=== PATIENT | female | born 1960 | race Caucasian/White ===

== ENCOUNTER → 2016-09-27 | Outpatient (CLI) | payer BC ==
[~2016-09-27] MED LIST: REGADENOSON 0.4 MG/5 ML SYRINGE IV ONE
--- NOTE | 2016-09-27 11:06 | EST ---
DATE OF SERVICE: 09/27/2016 AGE: 56Y SEX: F HT: 62 WT: 178 lbs. Protocol Stephan: Other: Lexiscan Cardiolite Stage: Dur. of Exercise: *Heart Rate Blood Pressure *Rest: 69 Rest: 123/74 * *Max. Achieved: 88 Maximum BP: 124/74 85% PMHR: 100% PMHR: *METS: INDICATIONS: Chest pain. MEDICATIONS: Baseline rhythm is sinus mechanism, rate of 69, normal axis and intervals, minor nonspecific ST-T wave changes. Baseline blood pressure 123/74 mmHg. Patient received an injection of Lexiscan. Electrocardiograph monitoring revealed no evidence of diagnostic ischemic ST deviation. Cardiolite was injected per protocol. CONCLUSION: 1. Nondiagnostic electrocardiograph stress testing. 2. Nuclear images will be reported separately.
--- NOTE | 2016-09-27 12:43 | NM ---
EXAMINATION TYPE: NM stress Lexiscan cardiolite DATE OF EXAM: 09/27/2016 11:24 AM COMPARISON: Previous study dated 08/09/2011 HISTORY: Chest pain TECHNIQUE: After the intravenous administration of 10.28 mCi Tc 99m Sestamibi - Cardiolite resting S PECT images acquired 45 minutes post injection. The patient received 0.4mg Lexiscan, 26.4 mCi Tc 99m Sestamibi - Stress images obtained [address] injection FINDINGS: Review of stress and rest SPECT images demonstrates no distinct perfusion abnormality. Gated analysi s shows normal wall motion with an estimated left ventricular ejection fraction of 67 %. There is no convincing inducible ischemic change. IMPRESSION: I DO NOT SEE EVIDENCE OF INDUCIBLE ISCHEMIC CHANGE AT THIS TIME.
== END | disposition home or self-care (01) ==
LOC: RADNMMAIN 07:54
PROVIDERS: ATTEND Family Medicine
DX: R07.89 Other chest pain (principal)
CPT/HCPCS: 93017; 78452; A9500

== ENCOUNTER → 2018-09-18 | Outpatient (CLI) | payer BC ==
--- NOTE | 2018-09-22 08:28 | MM ---
Reason for exam: screening (asymptomatic). Last mammogram was performed 1 year and 6 months ago. History: Patient is postmenopausal. Family history of breast cancer in grandmother. Cyst aspiration of the left breast. Physical Findings: A clinical breast exam by your physician is recommended on an annual basis and results should be correlated with mammographic findings. MG Screening Mammo w CAD Bilateral CC and MLO view(s) were taken. Prior study comparison: March 21, 2017, bilateral MG screening mammo w CAD. July 05, 2015, bilateral MG screening mammo w CAD. The breast tissue is heterogeneously dense. This may lower the sensitivity of mammography. No significant changes when compared with prior studies. ASSESSMENT: Benign, BI-RAD 2 RECOMMENDATION: Routine screening mammogram of both breasts in 1 year.
== END | disposition home or self-care (01) ==
LOC: RADMAMWWP 10:42
PROVIDERS: ATTEND Family Medicine
DX: Z12.31 Encounter for screening mammogram for malignant neoplasm of breast (principal)
CPT/HCPCS: 77067

== ENCOUNTER 2018-10-28 08:29 | Day surgery (SDC) | payer BC ==
[2018-10-26 09:40] VITALS: BMI 31.1
[~2018-10-28 08:29] MED LIST changes: +LACTATED RINGERS 1,000 ML IV SCH; -REGADENOSON 0.4 MG/5 ML SYRINGE IV ONE
--- NOTE | 2018-10-28 08:41 | P.GSHP ---
History of Present Illness H&P Date: 10/28/18 CHIEF COMPLAINT: Colon screen HISTORY OF PRESENT ILLNESS: The patient is a 58-year-old female who presents for colon screen. Lower endoscopy was offered for further evaluation and management. PAST MEDICAL HISTORY: Please see list. PAST SURGICAL HISTORY: Please see list. MEDICATIONS: Please see list. ALLERGIES: Please see list. SOCIAL HISTORY: No illicit drug use FAMILY HISTORY: No reports of Crohn disease or ulcerative colitis. REVIEW OF ORGAN SYSTEMS: CONSTITUTIONAL: No reports of fevers or chills. PHYSICAL EXAM: VITAL SIGNS: Stable GENERAL: Well-developed pleasant in no acute distress. HEENT: No scleral icterus. Extraocular movements grossly intact. Moist buccal mucosa. NECK: Supple without lymphadenopathy. CHEST: Unlabored respirations. Equal bilateral excursions. CARDIOVASCULAR: Regular rate and rhythm. Distal 2+ pulses. ABDOMEN: Soft, nontender, nondistended. MUSCULOSKELETAL: No clubbing, cyanosis, or edema. ASSESSMENT: 1. Colon screen. PLAN: 1. Recommend proceeding with a lower endoscopy Past Medical History Past Medical History: Hyperlipidemia, Hypertension, Thyroid Disorder History of Any Multi-Drug Resistant Organisms: None Reported Past Surgical History: Cholecystectomy, Tubal Ligation Additional Past Surgical History / Comment(s): COLONOSCOPY Past Anesthesia/Blood Transfusion Reactions: No Reported Reaction Smoking Status: Never smoker - Past Family History Mother Family Medical History: Cancer Medications and Allergies Home Medications Medication Instructions Recorded Confirmed Type Citalopram Hydrobromide 40 mg PO DAILY 10/26/18 10/26/18 History [Citalopram HBr] Cyanocobalamin (Vitamin B-12) 2,500 mcg PO DAILY 10/26/18 10/26/18 History [Vitamin B-12] Ergocalciferol (Vitamin D2) 50,000 unit PO MO 10/26/18 10/26/18 History [Vitamin D2] Levothyroxine Sodium [Synthroid] 137 mcg PO DAILY 10/26/18 10/26/18 History Lisinopril [Zestril] 20 mg PO DAILY 10/26/18 10/26/18 History Metoprolol Succinate [Toprol Xl] 100 mg PO DAILY 10/26/18 10/26/18 History Simvastatin [Zocor] 10 mg PO HS 10/26/18 10/26/18 History busPIRone HCL [Buspar] 7.5 mg PO BID 10/26/18 10/26/18 History Allergies Allergy/AdvReac Type Severity Reaction Status Date / Time amoxicillin Allergy Rash/Hives Verified 10/26/18 09:35
[2018-10-28] MEDS ORDERED: LIDOCAINE 1% 20 ML VIAL (10MG/ML) FOR IV START INTRADERMA ONE (08:50)
[2018-10-28 08:53] VITALS: TEMP 97.5
[2018-10-28] MEDS ORDERED: PROPOFOL 10 MG/ML 20 ML VIAL IV ONE (09:34)
[2018-10-28 10:26] VITALS: RESP 18
--- NOTE | 2018-10-28 10:27 | P.PCN ---
Date of Procedure: 10/28/18 Description of Procedure: PREOPERATIVE DIAGNOSIS: Colonoscopy screening. POSTOPERATIVE DIAGNOSIS: Colonoscopy screening. Diverticulosis, severe OPERATION: Colonoscopy to the ileocecal valve and appendiceal orifice. SURGEON: Nan Sosa MD. ANESTHESIA: MAC. INDICATIONS: The patient is a 58-year-old female who presents for colonoscopy screening. Benefits and risks were described and informed consent was obtained. DESCRIPTION OF PROCEDURE: The patient had undergone Gatorade, MiraLAX and Dulcolax prep. She had been brought into the operating room and laid in the left lateral decubitus position. After adequate intravenous sedation, the rectum was examined with 2% lidocaine jelly. External hemorrhoids were encountered. The rectal tone was within normal limits. No lesions were palpated in the rectal vault. An Olympus colonoscope was advanced until the ileocecal valve and appendiceal orifice were clearly viewed. The prep was good. Scattered diverticulosis was encountered. No colonic polyps were found. No evidence of focal colitis was found. Retroflexion of the scope demonstrated grade 1 internal hemorrhoids without active bleeding or inflammation. The colon was desufflated. The patient had tolerated the procedure well. Withdrawal time was over 6 minutes. FINDINGS: Aronchick preparation quality scale 2 (1-5) Internal hemorrhoids, grade 1 External prolapsed hemorrhoids, stage II Moderate sigmoid diverticulosis No arteriovenous malformations. No adenomatous polyps. No focal colitis. RECOMMENDATIONS: Lower endoscopy in 5 years per screening guidelines, 2023 Plan - Discharge Summary Discharge Rx Participant: Yes New Discharge Prescriptions: No Action busPIRone HCL [Buspar] 7.5 mg PO BID Simvastatin [Zocor] 10 mg PO HS Levothyroxine Sodium [Synthroid] 137 mcg PO DAILY Lisinopril [Zestril] 20 mg PO DAILY Metoprolol Succinate [Toprol Xl] 100 mg PO DAILY Ergocalciferol (Vitamin D2) [Vitamin D2] 50,000 unit PO MO Cyanocobalamin (Vitamin B-12) [Vitamin B-12] 2,500 mcg PO DAILY Citalopram Hydrobromide [Citalopram HBr] 40 mg PO DAILY Discharge Medication List Citalopram Hydrobromide [Citalopram HBr] 40 mg PO DAILY 10/26/18 [History] Cyanocobalamin (Vitamin B-12) [Vitamin B-12] 2,500 mcg PO DAILY 10/26/18 [History] Ergocalciferol (Vitamin D2) [Vitamin D2] 50,000 unit PO MO 10/26/18 [History] Levothyroxine Sodium [Synthroid] 137 mcg PO DAILY 10/26/18 [History] Lisinopril [Zestril] 20 mg PO DAILY 10/26/18 [History] Metoprolol Succinate [Toprol Xl] 100 mg PO DAILY 10/26/18 [History] Simvastatin [Zocor] 10 mg PO HS 10/26/18 [History] busPIRone HCL [Buspar] 7.5 mg PO BID 10/26/18 [History] Follow up Appointment(s)/Referral(s): Nan Sosa MD [STAFF PHYSICIAN] - As Needed Patient Instructions/Handouts: Diverticulosis Diet (GEN), Diverticulosis (DC) Activity/Diet/Wound Care/Special Instructions: Repeat colonoscopy in 5 years, 2023 Discharge Disposition: HOME SELF-CARE
[2018-10-28 10:45] VITALS: BP 118/70; PULSE 71
== END 2018-10-28 10:59 | disposition home or self-care (01) ==
LOC: ORWHC2ENDO 08:29
PROVIDERS: ATTEND Surgery Plastic and Reconstructive Surgery
DX: Z12.11 Encounter for screening for malignant neoplasm of colon (principal); K57.30 Diverticulosis of large intestine without perforation or abscess without bleeding; K64.0 First degree hemorrhoids; K64.4 Residual hemorrhoidal skin tags; E78.5 Hyperlipidemia, unspecified; I10 Essential (primary) hypertension; Z88.1 Allergy status to other antibiotic agents; E07.9 Disorder of thyroid, unspecified; Z79.890 Hormone replacement therapy; Z79.899 Other long term (current) drug therapy; Z90.49 Acquired absence of other specified parts of digestive tract
CPT/HCPCS: J2704; G0121

== ENCOUNTER → 2019-02-11 | Outpatient (CLI) | payer BC ==
--- NOTE | 2019-02-11 15:52 | XR ---
EXAMINATION TYPE: XR ankle complete LT DATE OF EXAM: 02/11/2019 COMPARISON: NONE HISTORY: ANKLE PAIN FINDINGS: Three views of the ankle demonstrate the ankle mortise to be intact and symmetric. The joint spaces are preserved. The osseous structures are intact. Small calcaneal spurs are noted. IMPRESSION: 1. Small calcaneal spurs.
== END | disposition home or self-care (01) ==
LOC: RADXRMAIN 15:33
PROVIDERS: ATTEND Family Medicine
DX: M77.32 Calcaneal spur, left foot (principal)

== ENCOUNTER → 2019-04-10 | Outpatient (CLI) | payer BC ==
--- NOTE | 2019-04-10 13:56 | MR ---
MRI LEFT ANKLE WITH CONTRAST CLINICAL INDICATION: Lesion. TECHNIQUE: Multi planar, multi sequence imaging of the left ankle was performed. Gadavist 7.5 mL int ravenously was given. COMPARISON: Ankle radiograph 02/11/2019. FINDINGS: Intact Achilles tendon. Partial tear at the origin of the central and lateral band plantar fascia fro m the calcaneus; mild adjacent edema. Posteromedial foot tendons are intact. No space-occupying lesion within the tarsal tunnel. Intact per sanabria tendons. Intact extensor tendons. Mild thickening of the anterior talofibular ligament, otherwise intact; no adjacent edema. Calcaneofi bular and posterior talofibular ligaments are intact. Deltoid ligament complex is intact. Intact spri ng ligament complex. Lisfranc ligament is intact. Ligaments and signal within the sinus tarsi are wit hin normal limits. Fibrillation of the tibiotalar articular cartilage without measurable defect. No fracture/stress frac ture findings ongoing osseous stress response. No pathologic bone marrow signal placement. Lobulated ganglion/synovial cyst emanating from the talonavicular joint decompressing deep to the ext ensor digitorum longus tendons spans 2.3 x 2.2 cm in AP by transverse dimension and measures up to 6 mm wide. Lobulated fat signal along the inferomedial aspect of the plantar arch measuring 1.1 x 3.2 x 2.2 cm in TR x AP x CC dimension which homogenously saturates out on fat saturated sequences and hendrickson s not enhance. No joint effusion. IMPRESSIONS: 1. Prominent fat lobule versus lipoma along the inferior medial aspect of the plantar arch. 2. Ganglion cyst emanating from the talonavicular joint decompressing along the anterolateral aspect of the ankle joint. 3. Plantar fasciopathy with subacute partial tearing of the central and lateral bands.
== END | disposition home or self-care (01) ==
LOC: RADMRIMAIN 11:40
PROVIDERS: ATTEND Podiatrist Foot & Ankle Surgery
DX: M67.472 Ganglion, left ankle and foot (principal); S96.812A Strain of other specified muscles and tendons at ankle and foot level, left foot, initial encounter
CPT/HCPCS: 73723; A9585

== ENCOUNTER → 2019-09-14 | Outpatient (CLI) | payer BC ==
--- NOTE | 2019-09-15 14:01 | ECHOF ---
Referral Reason:R94.31 abnormal EKG MEASUREMENTS -------- HEIGHT: 0.0 cm WEIGHT: 28.1 kg BP: RVIDd: 2.7 cm (< 3.3) IVSd: 0.9 cm (0.6 - 1.1) LVIDd: 4.6 cm (3.9 - 5.3) LVPWd: 1.1 cm (0.6 - 1.1) IVSs: 1.3 cm LVIDs: 2.9 cm LVPWs: 1.5 cm LA Diam: 3.5 cm (2.7 - 3.8) LAESV Index (A-L): 35.78 ml/m Ao Diam: 2.5 cm (2.0 - 3.7) AV Cusp: 1.9 cm (1.5 - 2.6) LA Diam: 3.5 cm (2.7 - 3.8) MV EXCURSION: 13.838 mm (> 18.000) MV EF SLOPE: 83 mm/s (70 - 150) EPSS: 0.5 cm MV E Ike: 0.56 m/s MV DecT: 223 ms MV A Ike: 0.77 m/s MV E/A Ratio: 0.72 RAP: 5.00 mmHg RVSP: 29.51 mmHg FINDINGS -------- Sinus rhythm. This was a technically good study. The left ventricular size is normal. There is mild concentric left ventricular hypertrophy. Overa ll left ventricular systolic function is normal with, an EF between 55 - 60 %. The right ventricle is normal in size. The left atrium is mildly dilated. LA is midly dilated 29-33ml/m2. The right atrial size is normal. The aortic valve is trileaflet, and appears structurally normal. No aortic stenosis or regurgitation. Mild mitral regurgitation is present. Mild tricuspid regurgitation present. Right ventricular systolic pressure is normal at < 35 mmHg. There is no evidence of pulmonary hypertension. There is no pulmonic regurgitation present. The aortic root size is normal. There is no pericardial effusion. CONCLUSIONS -------- 1. Sinus rhythm. 2. This was a technically good study. 3. The left ventricular size is normal. 4. There is mild concentric left ventricular hypertrophy. 5. Overall left ventricular systolic function is normal with, an EF between 55 - 60 %. 6. The right ventricle is normal in size. 7. The left atrium is mildly dilated. 8. LA is midly dilated 29-33ml/m2. 9. The right atrial size is normal. 10. The aortic valve is trileaflet, and appears structurally normal. No aortic stenosis or regurgitat ion. 11. Mild mitral regurgitation is present. 12. Mild tricuspid regurgitation present. 13. Right ventricular systolic pressure is normal at < 35 mmHg. 14. There is no evidence of pulmonary hypertension. 15. There is no pulmonic regurgitation present. 16. The aortic root size is normal. 17. There is no pericardial effusion. KICKBOXING INSTRUCTOR: Marjorie Tao RDCS
== END | disposition home or self-care (01) ==
LOC: RADECHMAIN 12:52
PROVIDERS: ATTEND Family Medicine
DX: I08.1 Rheumatic disorders of both mitral and tricuspid valves (principal)
CPT/HCPCS: 93306

== ENCOUNTER → 2019-12-22 | Outpatient (CLI) | payer BC ==
--- NOTE | 2019-12-23 11:58 | MM ---
Reason for exam: screening (asymptomatic). Last mammogram was performed 1 year and 3 months ago. History: Patient is postmenopausal. Family history of breast cancer in grandmother. Cyst aspiration of the left breast. Took hormonal contraceptives for 5 years. Physical Findings: A clinical breast exam by your physician is recommended on an annual basis and results should be correlated with mammographic findings. MG Screening Mammo w CAD Bilateral CC and MLO view(s) were taken. Prior study comparison: September 18, 2018, bilateral MG screening mammo w CAD. March 21, 2017, bilateral MG screening mammo w CAD. The breast tissue is heterogeneously dense. This may lower the sensitivity of mammography. There are benign appearing round dystrophic calcifications bilaterally. There is chronic nodularity in the right axilla unchanged from 2017 study. There is no discrete abnormality. Benign bilateral axilla lymph nodes redemonstrated. ASSESSMENT: Benign, BI-RAD 2 RECOMMENDATION: Routine screening mammogram of both breasts in 1 year.
== END | disposition home or self-care (01) ==
LOC: RADMAMWWP 10:01
PROVIDERS: ATTEND Family Medicine
DX: Z12.31 Encounter for screening mammogram for malignant neoplasm of breast (principal)
CPT/HCPCS: 77067

== ENCOUNTER → 2021-10-10 | Outpatient (CLI) | payer BC ==
--- NOTE | 2021-10-10 15:57 | US ---
EXAMINATION TYPE: US extremity nonvasc mass LT DATE OF EXAM: 10/10/2021 COMPARISON: NONE CLINICAL HISTORY: R22.32. Visual medial antecubital palpable x few months. No injury. No pain. Area of concern scanned. Contralateral images taken. No prominent masses or lesions identified on t matheus's exam. IMPRESSION: 1. No suspicious ultrasound abnormality to correspond to abnormality at the antecubital fossa on clin ical exam
== END | disposition home or self-care (01) ==
LOC: RADUSWWP 15:25
PROVIDERS: ATTEND Family Medicine
DX: R22.32 Localized swelling, mass and lump, left upper limb (principal)

== ENCOUNTER → 2021-10-15 | Outpatient (CLI) | payer BC ==
--- NOTE | 2021-10-17 10:32 | MM ---
Reason for exam: screening (asymptomatic). Last mammogram was performed 1 year and 10 months ago. History: Patient is postmenopausal. Family history of breast cancer in grandmother. Benign cyst aspiration of the left breast. Took hormonal contraceptives for 5 years. Physical Findings: A clinical breast exam by your physician is recommended on an annual basis and results should be correlated with mammographic findings. MG Screening Mammo w CAD Bilateral CC and MLO view(s) were taken. Prior study comparison: December 22, 2019, bilateral MG screening mammo w CAD. September 18, 2018, bilateral MG screening mammo w CAD. The breast tissue is heterogeneously dense. This may lower the sensitivity of mammography. Finding: There are typically benign diffuse/scattered calcifications in both breasts. No significant changes in finding since December 22, 2019 and September 18, 2018. ASSESSMENT: Benign, BI-RAD 2 RECOMMENDATION: Routine screening mammogram of both breasts in 1 year.
== END | disposition home or self-care (01) ==
LOC: RADMAMWWP 15:26
PROVIDERS: ATTEND Family Medicine
DX: Z12.31 Encounter for screening mammogram for malignant neoplasm of breast (principal); Z78.0 Asymptomatic menopausal state; Z80.3 Family history of malignant neoplasm of breast
CPT/HCPCS: 77067

== ENCOUNTER → 2021-10-15 | Outpatient (CLI) | payer BC ==
--- NOTE | 2021-10-15 16:35 | XR ---
EXAMINATION TYPE: XR chest 2V DATE OF EXAM: 10/15/2021 COMPARISON: NONE HISTORY: R06.00 TECHNIQUE: Frontal and lateral views of the chest are obtained. FINDINGS: There is no focal air space opacity, pleural effusion, or pneumothorax seen. The cardiac silhouette size is within normal limits. Retrocardiac density with central lucency is present consist ent with hiatal hernia. There is eventration of the right hemidiaphragm. Surgical clips present in th e right upper quadrant. The osseous structures are intact. IMPRESSION: No acute cardiopulmonary process. Hiatal hernia with partial intrathoracic stomach.
== END | disposition home or self-care (01) ==
LOC: RADXRMAIN 15:48
PROVIDERS: ATTEND Family Medicine
DX: K44.9 Diaphragmatic hernia without obstruction or gangrene (principal)
CPT/HCPCS: 71046

== ENCOUNTER → 2022-10-25 | Outpatient (CLI) | payer BC ==
--- NOTE | 2022-10-28 07:07 | MM ---
Reason for Exam: Screening (asymptomatic). Last screening mammogram was performed 12 month(s) ago. Patient History: Menarche at age 13. First Full-Term at age 19. Postmenopausal. Patient used Hormonal Contraceptives for 5 years. Benign Cyst Aspiration on the left side. Maternal grandmother had breast cancer. Risk Values: Kiesha 5 year model risk: 1.1%. NCI Lifetime model risk: 5.0%. Prior Study Comparison: 09/18/2018 Bilateral Screening Mammogram, [facility]. 12/22/2019 Bilateral Screening Mammogram, [facility]. 10/15/2021 Bilateral Screening Mammogram, [facility]. Tissue Density: The breast tissue is heterogeneously dense. This may lower the sensitivity of mammography. Findings: Analyzed By CAD. There are loosely grouped benign-appearing rounded dystrophic calcifications bilaterally redemonstrated. Benign-appearing bilateral axillary lymph nodes are redemonstrated. There is no suspicious new group of microcalcifications or new suspicious mass in either breast. Overall Assessment: Benign, BI-RAD 2 Management: Screening Mammogram of both breasts in 1 year. . Patient should continue monthly self-breast exams. A clinical breast exam by your physician is recommended on an annual basis. This exam should not preclude additional follow-up of suspicious palpable abnormalities. Note on Kiesha scores and lifetime risk: 1. A Kiesha score greater than 3% is considered moderate risk. If this is the case, consider specialist referral to assess eligibility for a risk reducing agent. 2. If overall lifetime risk for the development of breast cancer is 20% or higher, the patient may qualify for future screening with alternating mammogram and breast MRI. Electronically signed and approved by: Tarun London M.D.
== END | disposition home or self-care (01) ==
LOC: RADMAMWWP 09:47
PROVIDERS: ATTEND Family Medicine
DX: Z12.31 Encounter for screening mammogram for malignant neoplasm of breast (principal); Z78.0 Asymptomatic menopausal state; R94.31 Abnormal electrocardiogram [ECG] [EKG]
CPT/HCPCS: 77063; 77067

== ENCOUNTER → 2022-11-20 | Outpatient (CLI) | payer BC ==
--- NOTE | 2022-12-19 16:30 | P.CEMON ---
30 Day Event monitor note: Patient wore an event monitor for 10 days from 11/20/2022 through 12/09/2022. Findings: Patient's baseline heart rate was normal sinus rhythm. There were no signficant atrial fibrillation, atrial flutter, or ventricular tachycardia episodes. There were no significant pauses greater than 2 seconds. There were a total of 33 patient activated and automatically. Events corresponding with sinus rhythm, PVCs. Majority of patient activated events, symptoms not specified corresponded with sinus rhythm and twice with PVCs. There were asymptomatic PVCs and bigeminy. No significant ventricular tachycardia Conclusions: 30 day event monitor worn for 10 days showing sinus rhythm, frequent PVCs and bigeminy. Patient activated events mainly corresponded with sinus rhythm and occasionally with PVCs.
== END | disposition home or self-care (01) ==
LOC: RADECHMAIN 07:28
PROVIDERS: ATTEND Family Medicine
DX: R00.2 Palpitations (principal)
CPT/HCPCS: 93270

== ENCOUNTER → 2023-02-05 | Outpatient (CLI) | payer BC ==
--- NOTE | 2023-02-05 10:04 | CA ---
Exercise Stress Test Report Name: Nery Al Exam Date: 02/05/2023 09:11 Exam Location: [place] Stress Ht (in): 62 Wt (lb): 178 BSA: 1.82 Ordering Phys: Abdoul Christopher DO Referring Phys: ABDOUL CHRISTOPHER,, Technologist: Doc Herring Age: 62 Gender: F : 1960 Procedure CPT: Indications: I49.3 ventricular premature depolarization ICD-10 Codes: Patient History: Medications: SEE LIST Meds past 24 hrs: Pretest Chest Pain: STRESS TEST Stephan Protocol Exercise Duration (min:sec): 05:[address] Depressions (mm): Angina Score: Arias Score: Resting HR (bpm): 69 Peak HR (bpm): 119 Resting BP (mmHg): 119 / 68 Peak BP (mmHg): 185 / 62 MPHR: 158 Target HR: 134 % MPHR: 75 METS: 7.1 Total Dose: Peak Dose: Atropine: Double Product: 82559 BP Response: Stress Termination: Dyspnea Stress Symptoms: Patient was short of breath Stress Summary: ECG ANALYSIS Resting ECG: Stress ECG: CONCLUSIONS Baseline EKG revealed a normal sinus rhythm with minor nonspecific ST abnormality. Patient walked on a standard Stephan protocol for 5 minutes 51 seconds and achieved a maximum heart rate of 119 bpm. Resting heart rate was 69 bpm. Stress test. Because of shortness of breath and fatigue. She did not have angina. Heart rate response was suboptimal. This is therefore an inconclusive stress test by EKG criteria. Nonspecific ST segment changes are noted. Patient's x-rays capacity suboptimal. This is an inconclusive stress test because of inadequate for tropic response. I would recommend a pharmacological stress test to evaluate for ischemia. No significant arrhythmia was noted Dr. Elkin Cooper MD (Electronically Signed) Final Date: 05 February 2023 10:03
== END | disposition home or self-care (01) ==
LOC: RADNMMAIN 08:42
PROVIDERS: ATTEND Family Medicine
DX: I49.3 Ventricular premature depolarization (principal); R06.02 Shortness of breath
CPT/HCPCS: 93017